=== PATIENT | female | born 1975 | race Caucasian/White ===

== ENCOUNTER 2020-12-13 14:23 | Outpatient (CLI) | payer OTHER, SELFPAY ==
--- NOTE | ~2020-12-13 | MM_ITS ---
EXAMINATION: MM screening [facility] BI w sly HISTORY: Screening TECHNIQUE: Craniocaudal and mediolateral oblique 3-D tomosynthesis images were obtained and synthetic 2-D images were generated. CAD analysis was submitted and interpreted. COMPARISON: Comparison to multiple prior studies sequentially, with oldest reviewed study dated 01/21. BREAST PARENCHYMAL COMPOSITION: There are scattered areas of fibroglandular density. FINDINGS: There is no evidence of suspicious mass, calcification, or architectural distortion to sugg est malignancy in either breast. There has been no suspicious interval change. IMPRESSION: 1. No mammographic evidence of malignancy. 2. Recommend routine screening mammography in one year. BI-RADS Category 1: Negative Reviewed, dictated and finalized at location A.
== END 2020-12-13 14:24 | disposition home or self-care (01) ==
LOC: ANHIMG 14:30
PROVIDERS: Visit Provider Obstetrics & Gynecology
DX: Z12.31 Encounter for screening mammogram for malignant neoplasm of breast (principal)
CPT/HCPCS: 77063; 77067

== ENCOUNTER → 2021-02-08 00:25 | Outpatient (CLI) | payer OTHER, SELFPAY ==
[2021-02-08 19:36] LABS: SARS-CoV-2 RNA PCR Negative
== END ==
PROVIDERS: Visit Provider Internal Medicine Gastroenterology
DX: Z01.812 Encounter for preprocedural laboratory examination (principal); Z20.822 Contact with and (suspected) exposure to COVID-19
CPT/HCPCS: C9803; U0003; U0005

== ENCOUNTER 2021-02-11 02:09 | Day surgery (SDC) | payer OTHER, SELFPAY ==
[2021-01-31 10:00] VITALS: BMI 29.1
[2021-02-11 08:15] VITALS: BP 115/76; PULSE 71; RESP 15; TEMP 36.6; O2SAT 100; BMI 29.1
[2021-02-11] MEDS: LACTATED RINGERS 1,000 ML 150 ML IV CONT (08:18)
--- NOTE | 2021-02-11 08:41 | WPDANESEPPF ---
Anes - Initial Pre Proc Eval Procedure: Operation Date: 02/11/21 09:15 Proposed Procedures p Colonoscopy - Jarrod Estrada MD Date/Time: 02/11/21 08:41 Surgeon: Jarrod Estrada MD Pre Op Diagnosis: diarrhea, rectal bleeding Patient Data Age: 45 Gender: F Height: 5 ft 4 in Weight: 77.1 kg Last Vital Signs Temp 97.8 F 02/11/21 08:15 Pulse 71 02/11/21 08:15 Resp 15 02/11/21 08:15 BP 115/76 02/11/21 08:15 Pulse Ox 100 02/11/21 08:15 Allergies Allergy/AdvReac Type Severity Reaction Status Date / Time Penicillins Allergy Unknown Other Verified 02/11/21 08:14 Home Medications Medication Instructions Recorded Confirmed Type No Home Medications 01/31/21 02/11/21 History Patient hx anesthesia problems: none Family hx anesthesia problems: none PMFSH Past Medical History Medical History (Updated 02/11/21 @ 08:33 by Jere Burt MD) Bronchitis Family History Family History (Updated 02/18/18 @ 08:35 by DOCTOR UNKNOWN) Father Diabetes mellitus Family history of cardiovascular disease Mother Family history of malignant neoplasm of uterus Family history of malignant neoplasm of breast in first degree relative Social History Social History Smoking status: Never smoker Alcohol intake: current Drinks per week: 1 Living arrangements: with family Spiritual care concerns: No Anes - Eval Final PreProcedure Day of Procedure 02/11/21 08:41 Patient weight: normal Heart: regular rate and rhythm Lungs: clear to auscultation Airway: Mallampati scale class II Neurological: alert and oriented Last oral intake: >/= 8 hours ASA classification: II Emergent: no Anesthetic plan: proceed Anesthesia type and monitoring: general GIVS and standard monitoring Informed Consent: The patient's anesthetic plan and its attendant risks and benefits were discussed with the patient/family/POA. Questions were solicited and answers provided to the satisfaction of the patient/family/POA.
--- NOTE | 2021-02-11 09:00 | P.HP_ITS ---
History of Present Illness History of Present Illness Consent: Risks, benefits, and alternatives have been discussed and questions answered. Patient agrees to proceed with procedure. Chief complaint: diarrhea, rectal bleeding Narrative: Maryan Kirkpatrick is a 45 year old female with intermittent bloating and hemorrhoids/blood in stool, normally once a month. 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 Last colonoscopy 5-6 years ago. Review of Systems Constitutional: Constitutional: Denies headache(s) and Denies weakness Eyes: Eyes: Denies blurry vision ENT: Reports Normal hearing present, Denies headache(s) and Denies neck pain Cardiovascular: Cardiovascular: Denies chest pain and Denies dyspnea Respiratory: Respiratory: Denies dyspnea Gastrointestinal: Gastrointestinal: Reports no additional gastrointestinal complaints Genitourinary: Genitourinary: Denies dysuria Musculoskeletal: Musculoskeletal: Denies neck pain Integumentary/Breasts: Skin/Breast: Denies dry skin Neurologic: Reports Normal hearing present, Denies headache(s) and Denies weakness Psychiatric: Psychiatric: Denies anxiety Endocrine: Endocrine: Denies change in body appearance Hematologic/Lymphatic: Hematologic/Lymphatic: Denies easy bleeding Allergic/Immunologic: Allergic/Immunologic: Denies urticaria PMFSH Past Medical History Medical History (Updated 02/11/21 @ 09:01 by Jarrod Estrada MD) Blood in stool Bronchitis Family History Family History (Updated 02/18/18 @ 08:35 by DOCTOR UNKNOWN) Father Diabetes mellitus Family history of cardiovascular disease Mother Family history of malignant neoplasm of uterus Family history of malignant neoplasm of breast in first degree relative Social History Social History Smoking status: Never smoker Alcohol intake: current Drinks per week: 1 Living arrangements: with family Spiritual care concerns: No Meds Home Medications and Allergies Home Medications Medication Instructions Recorded Confirmed Type No Home Medications 01/31/21 02/11/21 History Allergies Allergy/AdvReac Type Severity Reaction Status Date / Time Penicillins Allergy Unknown Other Verified 02/11/21 08:14 Vital Signs Vital Signs - 24 hr 02/11/21 08:15 Temperature 97.8 F Pulse Rate 71 Respiratory Rate 15 Blood Pressure 115/76 Pulse Oximetry 100 Exam Const: General: comfortable and no acute distress HENMT: General nose exam: Normal nares present Eyes: General: appearance normal, both eyes and all related structures Neck: Neck: no JVD Resp: Auscultation: clear to auscultation bilaterally Cardio: Rate: regular rate Rhythm: regular rhythm GI: Inspection: non-distended GI Palp: Yes Soft to palpation Skin: General skin exam: normal color Neuro: General: gait normal Speech: normal speech Extrem: General: normal to inspection Psych: Mental Status: mental status grossly normal Assessment and Plan Assessment and plan (1) Blood in stool: Code(s): K92.1 - Melena Status: Acute Assessment and Plan: colonos
[2021-02-11 09:17] VITALS: BP 101/63; PULSE 62; RESP 15; O2SAT 99
[2021-02-11 09:27] VITALS: BP 123/69; PULSE 67; RESP 16; O2SAT 99
[2021-02-11 09:37] VITALS: BP 126/87; PULSE 70; RESP 16; O2SAT 99
== END 2021-02-11 09:45 | disposition home or self-care (01) ==
PROVIDERS: PCP Obstetrics & Gynecology; Visit Provider Internal Medicine Gastroenterology
PROC: 0DJD8ZZ Inspection of Lower Intestinal Tract, Via Natural or Artificial Opening Endoscopic (ICD-10-PCS; CPT 45378; principal; 2021-02-11 09:15)
DX: K92.1 Melena (principal); R19.7 Diarrhea, unspecified; K57.30 Diverticulosis of large intestine without perforation or abscess without bleeding; K64.8 Other hemorrhoids
CPT/HCPCS: 45378; C9803; J2704; J7120; U0003; U0005

== ENCOUNTER → 2021-03-26 01:19 | Outpatient (CLI) | payer OTHER, SELFPAY ==
[2021-03-26 17:12] LABS: SARS-CoV-2 RNA PCR Negative
== END ==
PROVIDERS: PCP Obstetrics & Gynecology; Visit Provider Obstetrics & Gynecology
DX: Z01.812 Encounter for preprocedural laboratory examination (principal); Z20.822 Contact with and (suspected) exposure to COVID-19
CPT/HCPCS: C9803; U0003; U0005

== ENCOUNTER 2021-03-26 09:14 | Outpatient (CLI) | payer OTHER, SELFPAY ==
[2021-03-26 10:27] LABS: Basophils Percent Auto 0.7 % (0.2-1.2); Eosinophils Absolute Auto 0.2 K/mm3 (0-0.3); Eosinophils Percent Auto 2.8 % (0-4.4); Hematocrit 38.9 % (37.0-47.0); Hemoglobin 12.9 g/dL (12.0-15.0); Immature Granulocyte Absolute 0.01 K/mm3 (0.00-0.031); Immature Granulocyte Percent A 0.2 % (0-0.5); Lymphocytes Absolute Auto 1.82 K/mm3 (0.9-3.2); Mean Corpuscular HGB Conc 33.2 g/dl (32-36); Mean Corpuscular Hemoglobin 31.8 pg (26-34); Mean Corpuscular Volume 95.8 fl (80-100); Monocytes Absolute Auto 0.8 K/mm3 (0.1-0.6); Monocytes Percent Auto 12.5 % (2.6-8.5); Neutrophils Absolute Auto 3.3 K/mm3 (1.3-6.7); Neutrophils Percent Auto 53.8 % (45.5-73.1); Platelet Count Result 231 k/mm3 (150-375); Red Blood Count 4.06 M/mm3 (4.2-5.4); Red Cell Distribution Width 12.3 % (11.5-14.5); White Blood Count 6.1 K/mm3 (4.5-10.0)
== END 2021-03-26 09:15 | disposition home or self-care (01) ==
LOC: ANHSURGERY 09:17
PROVIDERS: Visit Provider Obstetrics & Gynecology
DX: N85.2 Hypertrophy of uterus (principal); Z01.818 Encounter for other preprocedural examination
CPT/HCPCS: 36415; 85025; 86850; 86900; 86901

== ENCOUNTER 2021-03-29 00:19 | Day surgery (SDC) | payer OTHER, SELFPAY ==
[2021-03-18 16:21] VITALS: BMI 28.3
--- NOTE | 2021-03-26 12:27 | PM.IMHP ---
H&P: HPI History of Present Illness Date/Time: 03/26/21 12:27 45-year-old 2 para 2 admitted for robotic total vaginal hysterectomy and bilateral salpingectomies she has a known enlarged fibroid uterus and has had pelvic pain and dyspareunia. She had a negative GI workup and just feels chronic fullness and discomfort. Risks and benefits were reviewed including but not exclusive of , aspiration pneumonia, bleeding, transfusion, perforation injury to bowel, bladder, ureter, or other internal organs with need for open laparotomy. She received the [employer] handout entitled hysterectomy as well as the de [employer] handout. She had all questions answered and asked to proceed Chief Complaint: enlarged uterus and pelvic pain Review of Systems Review of Systems: All systems reviewed & are unremarkable except as noted in HPI and below PMFSH Past Medical History Medical History Blood in stool Bronchitis Family History Family History Father Diabetes mellitus Family history of cardiovascular disease Mother Family history of malignant neoplasm of uterus Family history of malignant neoplasm of breast in first degree relative Social History Social History Smoking status: Never smoker Alcohol intake: current Drinks per week: 2 Spiritual care concerns: No Meds Home Medications and Allergies Home Medications Medication Instructions Recorded Confirmed Type No Home Medications 01/31/21 03/18/21 History Allergies Allergy/AdvReac Type Severity Reaction Status Date / Time Penicillins Allergy Unknown Other Verified 03/18/21 16:20 Exam Const: General: no acute distress Eyes: General: appearance normal, both eyes and all related structures Neck: Neck: supple and no JVD Thyroid: thyroid normal Resp: Effort & Inspection: normal respiratory effort Auscultation: clear to auscultation bilaterally Cardio: Rate: regular rate Rhythm: regular rhythm GI: Inspection: non-distended GI Palp: Yes Soft to palpation, No Tenderness to palpation present (GI) and No Guarding due to palpation present (GI) Auscultation: normal bowel sounds : External Female Exam: normal external appearance Speculum Exam - Vagina: normal appearance of the vagina Speculum Exam - Cervix: normal appearance of the cervix Bimanual exam- vagina & uterus: Cervical tenderness present, enlarged and fixed Bimanual Exam- Adnexa, other: normal adnexae Skin: General skin exam: no rashes or lesions noted Extrem: General: normal to inspection and no edema Psych: Mental Status: mental status grossly normal Affect: normal affect Assessment and Plan Additional Plan impression: Pelvic pain with an enlarged fibroid uterus Plan: Robotic total vaginal hysterectomy and bilateral salpingectomies
[2021-03-29] VITALS (12 sets, daily range): BP systolic 105–125; BP diastolic 62–79; PULSE 47–81; RESP 9–16; TEMP 36.1–36.8; O2SAT 100; BMI 29.1
--- NOTE | 2021-03-29 05:47 | WPDHPUPDATE1 ---
History and Physical Update Update Date/Time: 03/29/21 05:47 History and Physical has been reviewed, including an updated exam of the patient. There are NO changes in the patient's condition. Risks, benefits, and alternatives have been discussed and questions answered. Patient agrees to proceed with procedure.
--- NOTE | 2021-03-29 06:54 | WPDANESEPPF ---
Anes - Initial Pre Proc Eval Procedure: Operation Date: 03/29/21 08:30 Proposed Procedures p Robotic Assisted Total Vaginal Hysterectomy, Bilateral Salpingectomy - Vernon Dennison MD Date/Time: 03/29/21 06:54 Surgeon: Vernon Dennison MD Pre Op Diagnosis: enlarge uterus, pelvic pain, menorrohaghia Patient Data Age: 45 Gender: F Height: 1.65 m Weight: 77.3 kg Allergies Allergy/AdvReac Type Severity Reaction Status Date / Time Penicillins Allergy Unknown Other Verified 03/18/21 16:20 Home Medications Medication Instructions Recorded Confirmed Type hydrocodone-acetaminophen 1 tablet PO Q4H PRN #30 tablet 03/29/21 Rx Patient hx anesthesia problems: none Family hx anesthesia problems: none PMFSH Past Medical History Medical History Blood in stool Bronchitis Surgical History Surgical History (Updated 03/29/21 @ 06:55 by Vernon Ibanez MD) H/O colonoscopy Family History Family History Father Diabetes mellitus Family history of cardiovascular disease Mother Family history of malignant neoplasm of uterus Family history of malignant neoplasm of breast in first degree relative Social History Social History Smoking status: Never smoker Alcohol intake: current Drinks per week: 2 Living arrangements: with family Spiritual care concerns: No Anes - Eval Final PreProcedure Day of Procedure 03/29/21 06:54 Patient weight: overweight Heart: regular rate and rhythm Lungs: clear to auscultation Airway: Mallampati scale class 1 Neurological: alert and oriented Last oral intake: >/= 8 hours ASA classification: II Emergent: no Anesthetic plan: proceed Anesthesia type and monitoring: general ETT and standard monitoring Informed Consent: The patient's anesthetic plan and its attendant risks and benefits were discussed with the patient/family/POA. Questions were solicited and answers provided to the satisfaction of the patient/family/POA.
[2021-03-29] MEDS: LACTATED RINGERS 1,000 ML 30 ML IV CONT ×2 (07:28→09:27)
[2021-03-29] MEDS: ACETAMINOPHEN 500 MG TABLET 1000 MG PO (07:37)
[2021-03-29] MEDS: KETOROLAC 15 MG/ML VIAL (*BKC) IV PUSH (07:38)
[2021-03-29] MEDS: ceFAZolin 2 GM/D5W 50 ML 2 GM/50 ML BAG IVPB (08:00)
--- NOTE | 2021-03-29 09:13 | W.PM.PROC2 ---
Procedure Note - Detailed Date of Procedure 03/29/21 Pre-op Diagnosis enlarge uterus, pelvic pain, menorrohaghia Post-op Diagnosis same Procedure Performed Robotic total vaginal hysterectomy and bilateral salpingectomies Surgeon Vernon Dennison MD Anesthesia general Indications this patient was admitted for hysterectomy secondary to pelvic pain bleeding and dyspareunia Findings enlarged fibroid appearing uterus. Normal-appearing ovaries and tubes bilaterally Description of Procedure the patient was prepped draped in the normal sterile fashion placed in the dorsal lithotomy position. Under excellent general endotracheal anesthesia weighted speculum placed in posterior fornix vagina. Anterior lip of the cervix grasped with a single-tooth tenaculum. Uterus sounded 9cm. Serial dilatation with fragmented dilators performed followed by passage of the 8. ANGELICA and the 3. 0.5 cold cup. Next the 16 Sinhala catheter was placed. Clear fluid was drained from the urine. The weighted speculum was removed and the gloves were changed. A supraumbilical incision was made the Veress needle passed in the abdomen. The abdomen filled with CO2 gas [id number]. The 8mm trocar advanced in the abdomen. The downside visualized and no injury seen. The patient placed in Trendelenburg and right left lateral quadrant incisions were made. 8mm trocars were advanced under direct visualization assuring no injury. A right upper quadrant incision made in the 10mm trocar advanced under direct visualization assuring no injury. The robot was docked. Attention was turned to the console. The left round ligament was grasped, burned, cut. Anteriorly a bladder flap was formed by sharply dissecting the peritoneum and reflecting the bladder caudally away from the cervix and uterus to the opposite round ligament which was clamped, burned, cut. Next the left fallopian tube was sharply dissected using monopolar cautery and left attached to its origin at the uterus. This was repeated in like fashion on contralateral side. The left utero-ovarian ligament was skeletonized to conserve the left ovary. This was clamped, burned, cut. This was brought to the level of previously cut round ligament. In like fashion conserving the right ovary the utero-ovarian ligament was clamped, burned, cut and brought to the level of previously cut round ligament. The left cardinal broad ligaments were then serially skeletonized down the lateral edge of the uterus clamping burning and cutting until the uterine vessels could be seen left. These were large and tortuous and individually clamped, burned, cut. In like fashion the opposite cardinal and broad ligament were skeletonized. These were clamped, burned, cut and brought down the lateral edge of the uterus until the right uterine vessels could be visualized. These also were large and tortuous and individually clamped, burned, cut. Blanching of the uterus was noted. A colpotomy incision was made in the cervix uterus and tubes removed through the vagina. Blood loss estimated at25cc. Vagina was then closed with continuous running 0V lock from lateral edge to lateral edge back to the midline. Irrigation undertaken to clear and hemostasis assured. [place] term was placed over the vaginal cuff where raw areas were seen. The pedicles appeared dry and the robot was undocked. The gas removed from the abdomen. The incisions closed with 4 Monocryl and glue after removal of the trocars. The patient was awakened and went to recovery in satisfactory condition. All sponge, needle, instrument counts were correct. There were no immediate complications noted Estimated Blood Loss 25 Drains No Packing No Pathology yes Complications No immediate complications Condition stable Disposition floor
[2021-03-29] MEDS: fentaNYL CITRATE INJ (*CRX) 100 MCG/2 ML VIAL 25 MCG IV PUSH ×5 (09:40→10:50)
[2021-03-29] MEDS: ONDANSETRON INJ 4 MG/2 ML VIAL IV PUSH (10:50)
[2021-03-29] MEDS: DEXTROSE 5%/LACTATED RINGERS 1,000 ML 125 ML IV CONT (11:30)
--- NOTE | 2021-03-29 11:41 | ADMGEN ---
1111-This patient, Maryan Kirkpatrick, was admitted to OB 2nd Floor Room 279-00. Patient/family oriented to hospital policies and general routines including ID bracelet, bed and alarms, visiting hours, pain management, procedures, bathroom and other care routines, personal items, smoking policy, room service/diet, and visiting hours. Information on how to activate the Rapid Response Team has been discussed. Patient/Family are encouraged to report perceived risks to care and to ask questions if they do not understand what they are told or what they should do.
[2021-03-29] MEDS: KETOROLAC 30 MG/ML VIAL (*BKC) IV PUSH (14:13)
[2021-03-30 05:00] VITALS: BP 121/76; PULSE 62; RESP 16; TEMP 36.7
[2021-03-30 05:24] LABS: Basophils Percent Auto 0.1 % (0.2-1.2); Eosinophils Percent Auto 0.1 % (0-4.4); Hematocrit 33.5 % (37.0-47.0); Hemoglobin 11.1 g/dL (12.0-15.0); Immature Granulocyte Absolute 0.08 K/mm3 (0.00-0.031); Immature Granulocyte Percent A 0.6 % (0-0.5); Lymphocytes Absolute Auto 1.39 K/mm3 (0.9-3.2); Lymphocytes Percent Auto 9.9 % (18.3-44.2); Mean Corpuscular HGB Conc 33.1 g/dl (32-36); Mean Corpuscular Hemoglobin 31.8 pg (26-34); Mean Platelet Volume 11.6 fl (7.4-10.4); Monocytes Absolute Auto 1.2 K/mm3 (0.1-0.6); Monocytes Percent Auto 8.7 % (2.6-8.5); Neutrophils Absolute Auto 11.4 K/mm3 (1.3-6.7); Neutrophils Percent Auto 80.6 % (45.5-73.1); Platelet Count Result 194 k/mm3 (150-375); Red Blood Count 3.49 M/mm3 (4.2-5.4); White Blood Count 14.1 K/mm3 (4.5-10.0)
--- NOTE | 2021-03-30 07:00 | PM.OBPNVD ---
OB - PN: Subj Subjective Date/time seen: 03/30/21 07:00 Patient comments: no complaints and pain well controlled OB - PN: Obj Data Labs CBC & Chem 7: 03/30/21 05:19 Labs: Laboratory Results - last 24 hr 03/30/21 05:19 WBC 14.1 H RBC 3.49 L Hgb 11.1 L Hct 33.5 L MCV 96.0 MCH 31.8 MCHC 33.1 RDW 12.0 Plt Count 194 MPV 11.6 H Immature Gran % (Auto) 0.6 H Neut % (Auto) 80.6 H Lymph % (Auto) 9.9 L [place] % (Auto) 8.7 H Eos % (Auto) 0.1 Baso % (Auto) 0.1 L Lymph # (Auto) 1.39 [place] # (Auto) 1.2 H Eos # (Auto) 0.0 Baso # (Auto) 0.0 Abs Immat Gran (auto) 0.08 H Absolute Neuts (auto) 11.4 H Absolute Nucleated RBC 0.0 Nucleated RBC % 0.0 OB - PN A/P Plan day: 1 Plan: follow up 6 weeks (2 weeks) Time Spent With Patient Time: Total time spent is greater than 50% in coordination of care (as documented) at patient's floor/unit and/or counseling patient: Time with patient: less than 15 minutes Review of Systems Review of Systems: All systems reviewed & are unremarkable except as noted in HPI and below Exam Const: General: no acute distress Eyes: General: appearance normal, both eyes and all related structures Neck: Neck: supple and no JVD Thyroid: thyroid normal Resp: Effort & Inspection: normal respiratory effort Auscultation: clear to auscultation bilaterally Cardio: Rate: regular rate Rhythm: regular rhythm GI: Inspection: non-distended GI Palp: Yes Soft to palpation, No Tenderness to palpation present (GI) and No Guarding due to palpation present (GI) Auscultation: normal bowel sounds : General: Yes bladder normal to palpation External Female Exam: normal external appearance Speculum Exam - Vagina: normal vaginal discharge and No vaginal bleeding Speculum Exam - Cervix: nontender Bimanual exam- vagina & uterus: bladder normal to palpation and No Cervical tenderness present OB/external & speculum: No vaginal bleeding Skin: General skin exam: no rashes or lesions noted Extrem: General: normal to inspection and no edema Psych: Mental Status: mental status grossly normal Affect: normal affect
--- NOTE | 2021-03-30 07:02 | P.DS_ITS ---
DS: Admitting Diagnosis Admitting Diagnosis Admitting Diagnosis: pain /enlarged uterus DS: Summary Hospital Course Hospital Course: The patient was admitted for robotic total vaginal hysterectomy and bilateral salpingectomy. The procedure was unremarkable. Her postop course was unremarkable. She remained afebrile, she was up, voiding without difficulty, ambulating, voiding without difficulty and general without complaints Time Spent with Patient Time attestation: Total time spent providing and/or coordinating discharge services: Exam Const: General: no acute distress Eyes: General: appearance normal, both eyes and all related structures Neck: Neck: supple and no JVD Thyroid: thyroid normal Resp: Effort & Inspection: normal respiratory effort Auscultation: clear to auscultation bilaterally Cardio: Rate: regular rate Rhythm: regular rhythm GI: Inspection: non-distended GI Palp: Yes Soft to palpation, No Tenderness to palpation present (GI) and No Guarding due to palpation present (GI) Auscultation: normal bowel sounds : General: Yes bladder normal to palpation External Female Exam: normal external appearance Speculum Exam - Vagina: normal vaginal discharge and No vaginal bleeding Speculum Exam - Cervix: nontender Bimanual exam- vagina & uterus: bladder normal to palpation and No Cervical tenderness present OB/external & speculum: No vaginal bleeding Skin: General skin exam: no rashes or lesions noted Extrem: General: normal to inspection and no edema Psych: Mental Status: mental status grossly normal Affect: normal affect DS: Data Data Completed and Pending Pending studies at discharge: Pending at discharge 03/29/21 08:53 Surgical [PTH] Routine Labs on day of discharge: Labs from last 24 hours 03/30/21 05:19 WBC 14.1 H RBC 3.49 L Hgb 11.1 L Hct 33.5 L MCV 96.0 MCH 31.8 MCHC 33.1 RDW 12.0 Plt Count 194 MPV 11.6 H Immature Gran % (Auto) 0.6 H Neut % (Auto) 80.6 H Lymph % (Auto) 9.9 L [place] % (Auto) 8.7 H Eos % (Auto) 0.1 Baso % (Auto) 0.1 L Lymph # (Auto) 1.39 [place] # (Auto) 1.2 H Eos # (Auto) 0.0 Baso # (Auto) 0.0 Abs Immat Gran (auto) 0.08 H Absolute Neuts (auto) 11.4 H Absolute Nucleated RBC 0.0 Nucleated RBC % 0.0 Discharge Plan Discharge Patient Disposition: Home, Self-Care Stand Alone Forms: General Discharge Instructions Follow-up/Referrals: Vernon Dennison MD [Primary Care Provider] - Discharge Medications: New hydrocodone-acetaminophen 5-325 mg tablet 1 tablet PO Q4H PRN (Reason: pain) Qty: 30 RF: 0
[2021-03-30 07:09] VITALS: BP 108/72; PULSE 63; RESP 16; TEMP 37.2; O2SAT 100
--- NOTE | 2021-03-30 08:12 | WPDANESPN ---
Anes - Prog Note Post-Op Date/Time: 03/30/21 08:12 Cardiovascular status: normal Respiratory status: normal Airway patency: baseline Mental status: baseline Post-Op hydration status: normal Vital Signs: Last Vital Signs Temp 37.2 C 03/30/21 07:09 Pulse 63 03/30/21 07:09 Resp 16 03/30/21 07:09 BP 108/72 03/30/21 07:09 Pulse Ox 100 03/30/21 07:09 Pain Score (VAS): 0/10. Patient up at bedside ambulating during assessment, appears comfortable. I/O: Intake & Output 03/29/21 03/30/21 03/30/21 23:59 07:59 15:59 Intake Total 1842 Output Total 1800 Balance 42 Laboratory Tests 03/30/21 05:19 03/30/21 05:19 WBC 14.1 H RBC 3.49 L Hgb 11.1 L Hct 33.5 L MCV 96.0 MCH 31.8 MCHC 33.1 RDW 12.0 Plt Count 194 MPV 11.6 H Immature Gran % (Auto) 0.6 H Neut % (Auto) 80.6 H Lymph % (Auto) 9.9 L [place] % (Auto) 8.7 H Eos % (Auto) 0.1 Baso % (Auto) 0.1 L Lymph # (Auto) 1.39 [place] # (Auto) 1.2 H Eos # (Auto) 0.0 Baso # (Auto) 0.0 Abs Immat Gran (auto) 0.08 H Absolute Neuts (auto) 11.4 H Absolute Nucleated RBC 0.0 Nucleated RBC % 0.0 Post-procedural complaints: none Patient Feedback: Patient satisfied with anesthetic care.
[2021-03-30] MEDS: ENOXAPARIN 40 MG/0.4 ML SYRINGE SUB-Q (09:16)
== END 2021-03-30 09:32 | disposition home or self-care (01) ==
LOC: ANHSURGERY 06:36 → ANHOB2 11:08
PROVIDERS: PCP Obstetrics & Gynecology; Visit Provider Obstetrics & Gynecology
PROC: (CPT 58552; principal; 2021-03-29 08:30)
DX: R10.2 Pelvic and perineal pain (principal); N80.0 Endometriosis of uterus; N94.10 Unspecified dyspareunia; N92.0 Excessive and frequent menstruation with regular cycle
CPT/HCPCS: 58552; S2900; 36415; 85025; 86850; 86900; 86901; 88307; 99199; A9270; C9803; J0690; J1100; J1170; J1650; J1885; J2250; J2405; J2704; J3010; J7030; J7120; J7121; U0003; U0005

== ENCOUNTER 2022-07-17 12:39 | Observation (INO) | payer OTHER, SELFPAY ==
[2022-07-17] VITALS (11 sets, daily range): BP systolic 110–171; BP diastolic 60–104; PULSE 58–80; RESP 14–20; TEMP 36.3–36.5; O2SAT 97–100; BMI 28.8
--- NOTE | ~2022-07-17 | CT_ITS ---
EXAMINATION: CTA brain carotid DATE: 07/17/2022 14:06 INDICATION: Right-sided numbness. TECHNIQUE: Computed tomographic angiography (CTA) of the head was performed without and with 100 mL O mnipaque-350 intravenous contrast. CTA of the neck was performed with intravenous contrast. Automated exposure control and iterative reconstruction technique were employed. The dose-length product was 1 612.43 mGy-cm. Maximum intensity projection and volume rendered 3D-reconstructions were created by hyacinth natarajan technologist on a separate workstation. COMPARISON: None. FINDINGS: HEAD CTA: There is no intracranial hemorrhage, acute infarction, or abnormal intracranial mass lesion . The ventricles are normal in size. The orbits are normal. There is mild mucosal thickening in the p aranasal sinuses. There is a trace left mastoid effusion. There is a calcified mass in right parietal scalp, likely a chronic hematoma. Left vertebral artery is dominant. There is no significant stenosi s of basilar artery or the posterior cerebral arteries. There is no significant stenosis of the intra cranial internal carotid arteries or anterior or middle cerebral arteries. Anterior communicating art tien is normal. The posterior communicating arteries are normal. There is no aneurysm. NECK CTA: There are no pathologically enlarged lymph nodes. There is no significant stenosis of the v ertebral arteries. There is no visible plaque in the proximal internal carotids. There is 0% stenosis of the proximal right internal carotid artery relative to normal distal artery lumen diameter (NASCE T criteria). There is 0% stenosis of the proximal left internal carotid artery relative to normal dis gerson artery lumen diameter. There is mild cervical spondylosis. IMPRESSION: 1. Normal brain. No aneurysm or significant intracranial internal stenosis. 2. 0% stenosis of the proximal internal carotid arteries relative to normal distal artery lumen diame ter (NASCET criteria). Reviewed, dictated and finalized at location A. IMPRESSION: 1. Normal brain. No aneurysm or significant intracranial internal stenosis. 2. 0% stenosis of the proximal internal carotid arteries relative to normal dis gerson artery lumen diameter (NASCET criteria).
--- NOTE | ~2022-07-17 | MR_ITS ---
EXAMINATION: MR brain/brain stem wo/w con DATE: 07/18/2022 08:36 INDICATION: Right-sided numbness TECHNIQUE: Magnetic resonance imaging (MRI) of the brain and brainstem was performed without and with 15 mL Multihance intravenous contrast. Sequences included sagittal and axial T1-weighted SE, axial d iffusion-weighted FS SE, axial T2*-weighted GRE, axial 3D SWAN, axial T2-weighted FLAIR, and axial T2 -weighted FSE. Postcontrast axial and coronal T1-weighted SE was obtained. Apparent diffusion coeffic ient (ADC) maps were created. COMPARISON: Head CT and CT angiogram dated 07/17/2022 FINDINGS: There are no areas of restricted diffusion to suggest acute infarction. No intracranial hemorrhage or abnormal intracranial mass lesion. There are no intraparenchymal signal abnormalities seen on the ot her pulse sequences. The ventricles are symmetric and normal in size. There are no abnormal extra-axi al fluid collections. Flow voids are seen in the cerebral arteries on the T2-weighted sequences consi stent with their expected patency. Mild mucoperiosteal thickening throughout the paranasal sinuses. V isualized orbits and soft tissues are unremarkable. There are no areas of abnormal enhancement on the post contrast images. IMPRESSION: 1. Normal brain. Reviewed, dictated and finalized at location A. IMPRESSION: 1. Normal brain.
--- NOTE | ~2022-07-17 | MR_ITS ---
EXAMINATION: MR cervical spine wo/w con DATE: 07/18/2022 08:36 INDICATION: Right arm numbness TECHNIQUE: Magnetic resonance imaging (MRI) of the cervical spine was performed without intravenous c ontrast. Sequences included sagittal T2-weighted FSE, sagittal T2-weighted FS FSE, sagittal T1-weight ed FSE, axial MERGE and axial T2-weighted FSE. COMPARISON: None FINDINGS: Mild upper thoracic levocurvature. Normal alignment of the cervical spine. Vertebral body heights ar e normal. Bone marrow signal intensity is normal. Mild disc desiccation throughout the cervical spin e with normal disc heights. Annular fissure at C6-C7 with small posterior disc extrusion with disc ma terial extending a few millimeter cephalad and caudal to the level of the endplates. Additional annul ar fissure at C4-C5 and C5-C6. Cord signal intensity is normal with no abnormally enhancing lesions i n the cord or in the visualized cerebellum, maris and brainstem. Cervical soft tissues are unremarkabl e. The following disc levels are specifically discussed: C2-C3: The disc does not extend beyond the endplate margin. There is no uncovertebral joint osteoarth ritis. There is mild bilateral facet joint osteoarthritis. There is no neural foraminal stenosis. The re is no central canal stenosis. C3-C4: The disc does not extend beyond the endplate margin. There is no uncovertebral joint osteoarth ritis. There is left and mild to moderate right facet joint osteoarthritis. There is no neural forami nal stenosis. There is no central canal stenosis. C4-C5: Annular fissure and small right paracentral disc protrusion. There is mild bilateral uncoverte bral joint osteoarthritis. There is moderate right and mild to moderate left facet joint osteoarthrit is. There is mild right neural foraminal stenosis. There is negligible central canal stenosis. C5-C6: Annular fissure and minimal disc bulge. There is mild right uncovertebral joint osteoarthritis . There is moderate right and mild left facet joint osteoarthritis. There is no neural foraminal sten osis. There is no central canal stenosis. C6-C7: Annular fissure and small central disc extrusion which flattens the ventral surface of the cor d. There is mild right uncovertebral joint osteoarthritis. There is mild left and mild to moderate ri ght facet joint osteoarthritis. There is no neural foraminal stenosis. There is mild central canal st enosis. C7-T1: The disc does not extend beyond the endplate margin. There is no uncovertebral joint osteoarth ritis. There is mild right and mild to moderate left facet joint osteoarthritis. There is no neural f oraminal stenosis. There is no central canal stenosis. IMPRESSION: 1. Mild cervical spondylosis. No cord lesions identified. Reviewed, dictated and finalized at location A.
--- NOTE | 2022-07-17 12:46 | ECG_ITS ---
Measurements Intervals [place] Rate: 77 P: 44 W[place]: 127 QRS: 45 QRSD: 88 T: 56 QT: 386 QTc: 438 Interpretive Statements SINUS RHYTHM WITH FREQUENT VENTRICULAR PREMATURE COMPLEXES POSSIBLE RIGHT VENTRICULAR CONDUCTION DELAY [RSR (QR) IN V1/V2] NONSPECIFIC ST ABNORMALITY ABNORMAL ECG NO PREVIOUS ECG AVAILABLE FOR COMPARISON Electronically Signed On 07-17-2022 15:01:28 CDT by Ney Cameron M.D.
[2022-07-17 13:19] LABS: Basophils Percent Auto 0.4 % (0.2-1.2); Eosinophils Absolute Auto 0.1 K/mm3 (0-0.3); Eosinophils Percent Auto 1.3 % (0-4.4); Hematocrit 45.3 % (37.0-47.0); Hemoglobin 14.8 g/dL (12.0-15.0); Immature Granulocyte Absolute 0.01 K/mm3 (0.00-0.031); Immature Granulocyte Percent A 0.1 % (0-0.5); Lymphocytes Absolute Auto 1.95 K/mm3 (0.9-3.2); Mean Corpuscular HGB Conc 32.7 g/dl (32-36); Mean Corpuscular Hemoglobin 31.6 pg (26-34); Mean Corpuscular Volume 96.6 fl (80-100); Mean Platelet Volume 12.1 fl (7.4-10.4); Monocytes Percent Auto 15.5 % (2.6-8.5); Neutrophils Absolute Auto 3.6 K/mm3 (1.3-6.7); Neutrophils Percent Auto 53.7 % (45.5-73.1); Platelet Count Result 221 k/mm3 (150-375); Red Blood Count 4.69 M/mm3 (4.2-5.4); Red Cell Distribution Width 12.5 % (11.5-14.5); White Blood Count 6.7 K/mm3 (4.5-10.0)
[2022-07-17 13:33] LABS: Alanine Aminotransferase 27 U/L (6-35); Albumin Level 5.4 g/dL (3.5-5.1); Alkaline Phosphatase 77 U/L (38-126); Anion Gap 13 mmol/L (8-16); Aspartate Amino Transferase 33 U/L (14-36); Bilirubin,Total 0.9 mg/dL (0.2-1.3); Blood Urea Nitrogen 17 mg/dL (7-17); Calcium 9.4 mg/dL (8.4-10.2); Carbon Dioxide 22 mmol/L (22-30); Chloride 101 mmol/L (98-107); Estimated CRCL calculation 68 ml/min; Estimated Glomerular Filt Rate > 60; Glucose 93 mg/dL (65-110); Lipase 95 U/L (23-300); Potassium 3.7 mmol/L (3.4-5.0); Sodium 136 mmol/L (137-145)
[2022-07-17 13:36] LABS: Prothrombin Time 12.8 Seconds (11.1-14.7)
[2022-07-17 13:37] LABS: Partial Thromboplastin Time 26.9 SECONDS (22.3-36.8)
[2022-07-17 13:43] LABS: Troponin I < 0.012 ng/mL (0.000-0.034)
--- NOTE | 2022-07-17 14:45 | ED.EXTPRO ---
HPI - Extremity Problem General Chief complaint: Extremity Problem,Nontraumatic Stated complaint: numbness and tingling R arm Time Seen by Provider: 07/17/22 12:51 History of Present Illness HPI Narrative: Patient is a 47-year-old female who presents ER with right-sided tingling/numbness. Began 30 minutes prior to arrival. It is affecting her right upper extremity and her right lower extremity but not the trunk. No associated physical weakness. No slurred speech or expressive aphasia. She had similar symptoms last week that lasted 5 to 10 minutes. She had a similar episode 1 year ago where her right arm was paralyzed for about 5 minutes. She has no history of CVA. No history of demyelinating disease. She has not been evaluated for this issue. She reports no change in her symptoms since symptom onset. Patient reports no history of headache associated with these symptoms. Related Data Home Medications Medication Instructions Recorded Confirmed No Home Medications 07/17/22 07/17/22 Allergies Allergy/AdvReac Type Severity Reaction Status Date / Time Penicillins Allergy Unknown Other Verified 07/17/22 13:07 Review of Systems Review of Systems: All systems reviewed & are unremarkable except as noted in HPI and below Constitutional: Constitutional: Denies chills, Denies fatigue and Denies fever(s) Eyes: Eyes: Denies change in vision ENT: Denies vertigo, Denies nasal congestion and Denies sore throat Cardiovascular: Cardiovascular: Denies chest pain, Denies rapid heart rate and Denies radiating jaw, neck or arm pain Respiratory: Respiratory: Denies cough and Denies dyspnea Gastrointestinal: Gastrointestinal: Denies abdominal pain, Denies nausea and Denies vomiting Neurologic: Denies confusion, Denies syncope, Denies headache(s), Denies focal weakness and Reports numbness PMFSH Past Medical History Medical History (Updated 07/17/22 @ 22:14 by Julio Tenorio MD) Blood in stool Bronchitis Diverticulosis History of uterine fibroid IBS (irritable bowel syndrome) Strain of muscle, fascia and tendon of long head of biceps, right arm, initial encounter Surgical History Surgical History H/O colonoscopy H/O: hysterectomy Family History Family History Father Diabetes mellitus Family history of cardiovascular disease Mother Family history of malignant neoplasm of uterus Family history of malignant neoplasm of breast in first degree relative Leukemia Social History Social History (Updated 07/17/22 @ 18:09 by Nikki Sandhu NP) Social History: the patient lives with her trip who is her durable power workers compensation attorney for healthcare. They haves 2 children. She works for [employer] . She is a lifelong nonsmoker. She denies any marijuana or illicit drugs. the patient stated that she might have 2 drinks a week. Code status full code Smoking status: Never smoker Second hand tobacco smoke exposure: No Alcohol intake: never Drinks per week: 2 Substance use: never Living arrangements: with family Spiritual care concerns: No Has the Lack of Transportation Kept You From Medical Appointments or From Getting Medications?: No Within the Past 12 Months, Were You Worried Whether Your Food Would Run Out Before You Got Money to Buy More?: Never True What is Your Housing Situation Today?: I Have Housing Are You Worried That in the Next 2 Months, You May Not Have Your Own Housing to Live In?: No Do You Have Trouble Paying Your Heating Or Electricity Bill?: No Do You Have Trouble Paying For Medicines?: No Are You Currently Unemployed and Looking for Work?: No Highest Level of Education Completed: Bachelor's Degree Do You Have Trouble With Childcare or the Care of a Family Member?: No Exam Narrative: GENERAL: Well-appearing, well-nourished, and in no acute distr
[2022-07-17 16:02] LABS: Troponin I < 0.012 ng/mL (0.000-0.034)
--- NOTE | 2022-07-17 16:19 | PM.IMHP ---
H&P: HPI History of Present Illness Date/Time: 07/17/22 16:19 Chief Complaint: Numbness and tingling to right arm Narrative: this is a 47-year-old female patient who was brought to the emergency room today with right-sided numbness and tingling. The patient stated that it started in her right arm then she felt that and right lower extremity it started about 30 minutes prior to arrival. The patient stated that she has had 2 prior experiences leg this in the past. She has never had a workup for it. She has had no prior history of having a CVA. She stated when she had these symptoms in the past daily lasted 5-10 minutes. Her last episode was about a year ago when she was washing dishes and this happened for about 5 minutes. She has no headache associated with the symptoms. She had no chest pain. No fever chills. No nausea vomiting or diarrhea. Her sodium level was slightly low at 136. Head and neck CT were read as normal brain. No aneurysm or significant intracranial internal stenosis. 0% stenosis of the proximal internal carotid arteries relative to normal distal artery lumen diameter. The patient stated she had no slurred speech or focal weakness chest numbness and tingling to her right arm and leg. No recent injury. The patient is being admitted to observation status on the date of service of 07/17/2022. Review of Systems Review of Systems: See HPI All systems reviewed & are unremarkable except as noted in HPI and below Constitutional: Constitutional: Reports as per HPI and Reports no additional constitutional complaints Eyes: Eyes: Reports as per HPI and Reports no additional eye complaints ENT: Reports system reviewed and no additional complaints, except as documented and Reports Normal hearing present Cardiovascular: Cardiovascular: Reports no additional cardiovascular complaints Respiratory: Respiratory: Reports no additional respiratory complaints and Reports no additional respiratory complaints Gastrointestinal: Gastrointestinal: Reports as per HPI and Reports no additional gastrointestinal complaints Musculoskeletal: Musculoskeletal: Reports no additional musculoskeletal complaints Integumentary/Breasts: Skin/Breast: Reports system reviewed and no additional complaints, except as docu and Reports as per HPI Neurologic: Reports system reviewed and no additional complaints, except as documented, Reports as per HPI and Reports Normal hearing present Psychiatric: Psychiatric: Reports no additional psychiatric complaints and Reports as per HPI Endocrine: Endocrine: Reports no additional endocrine complaints Hematologic/Lymphatic: Hematologic/Lymphatic: Reports no additional hematologic/lymphatic complaints Allergic/Immunologic: Allergic/Immunologic: Reports no additional allergic/immunologic complaints FORMERLY [facility], 1928–1983 Past Medical History Medical History (Updated 07/17/22 @ 18:12 by Nikki Sandhu NP) Blood in stool Bronchitis Diverticulosis History of uterine fibroid IBS (irritable bowel syndrome) Strain of muscle, fascia and tendon of long head of biceps, right arm, initial encounter Surgical History Surgical History H/O colonoscopy H/O: hysterectomy Family History Family History Father Diabetes mellitus Family history of cardiovascular disease Mother Family history of malignant neoplasm of uterus Family history of malignant neoplasm of breast in first degree relative Leukemia Social History Social History (Updated 07/17/22 @ 18:09 by Nikki Sandhu NP) Social History: the patient lives with her husand who is her durable power attorney lawyer for healthcare. They haves 2 children. She works for [employer] . She is a lifelong nonsmoker. She denies any marijuana or illicit drugs. the patient stated that she might have 2 drinks a week. Code status full code Smoking status
--- NOTE | 2022-07-17 18:18 | ADMGEN ---
This patient, Maryan Kirkpatrick, was admitted to 2 Medical Room 241-01. Patient/family oriented to hospital policies and general routines including ID bracelet, bed and alarms, visiting hours, pain management, procedures, bathroom and other care routines, personal items, smoking policy, room service/diet, and visiting hours. Information on how to activate the Rapid Response Team has been discussed. Patient/Family are encouraged to report perceived risks to care and to ask questions if they do not understand what they are told or what they should do.
[2022-07-17 19:51] LABS: Troponin I < 0.012 ng/mL (0.000-0.034)
[2022-07-18] VITALS (8 sets, daily range): BP systolic 111–128; BP diastolic 63–87; PULSE 58–81; RESP 14–18; TEMP 36.1–36.5; O2SAT 98–100
--- NOTE | 2022-07-18 | ECHO_ITS ---
Patient Info Name: Maryan Kirkpatrick Age: 47 years : 1975 Gender: Female Ht: 64 in Wt: 163 lbs BSA: 1.85 m2 HR: 68 bpm BP: 178 / 100 mmHg Technical Quality: Good Exam Date: 07/18/2022 9:00 AM Exam Location: [facility] Patient Status: Inpatient Admit Date: 07/17/2022 Staff Ordering Physician: Nikki Sandhu NP Museum Assistant: Yosvany Salvador RDCS, RT Attending Provider: George Avina MD Referring Physician: Phoebe BOND; Exam Type: CA echo dop bubble study w con Study Info Indications R42 - Dizziness and giddiness Complete two-dimensional, color flow and Doppler transthoracic echocardiogram is performed. Strain analysis performed. Complete two-dimensional, color flow and Doppler transthoracic echocardiogram is performed with agitated saline. Summary 1. Complete two-dimensional, color flow and Doppler transthoracic echocardiogram is performed. 2. Left ventricular chamber dimension is normal. 3. Left ventricular systolic function is normal, estimated at 60-65%. 4. The left ventricular diastolic function is normal. 5. E/e' 6 is not elevated. 6. Global longitudinal strain is normal at -17.6%. 7. There is trace tricuspid valve regurgitation. Left Ventricle E/e' 6 is not elevated. Global longitudinal strain is normal at -17.6%. Left ventricular chamber dimension is normal. Left ventricular systolic function is normal, estimated at 60-65%. The left ventricular diastolic function is normal. Right Ventricle Right ventricular systolic function is normal and with normal TAPSE 2.5 cm.. Right ventricular chamber dimension is normal. Left Atria Left atrial chamber dimension is normal. Right Atria Right atrial chamber dimension is normal. Atrial Septum Agitated saline injection with and without valsalva maneuver opacified right side cardiac chambers without shunt to left side cardiac chambers. Intact interatrial septum visualized by 2D and agitated saline imaging. Aortic Valve The aortic valve is trileaflet. There is no aortic valve stenosis. There is no aortic valve regurgitation. Pulmonic Valve There is no pulmonic regurgitation. Mitral Valve There is no mitral valve stenosis. There is no mitral valve regurgitation. Tricuspid Valve There is trace tricuspid valve regurgitation. RVSP is not calculated due to an inadequate TR jet. Pericardium/Pleural There is no pericardial effusion. Inferior Vena Cava Normal inferior vena cava with >50% collapse upon inspiration consistent with normal right atrial pressure, 5 mmHg. Aorta The aortic root size at the sinus of Valsalva is normal. Left Ventricular Outflow Tract Name Value Normal LVOT 2D LVOT Diameter 2.0 cm LVOT Doppler LVOT Peak Gradient 3 mmHg LVOT Mean Gradient 2 mmHg LVOT VTI 18 cm LVOT VTI/AV VTI Ratio 0.7 LVOT Stroke Volume 54 ml LVOT CO 4.1 l/min LVOT CI 2.2 l/min/m2 Leanne
[2022-07-18 05:51] LABS: Basophils Percent Auto 0.6 % (0.2-1.2); Eosinophils Absolute Auto 0.1 K/mm3 (0-0.3); Eosinophils Percent Auto 2.2 % (0-4.4); Hematocrit 39.9 % (37.0-47.0); Hemoglobin 13.2 g/dL (12.0-15.0); Immature Granulocyte Absolute 0.02 K/mm3 (0.00-0.031); Immature Granulocyte Percent A 0.4 % (0-0.5); Lymphocytes Absolute Auto 1.77 K/mm3 (0.9-3.2); Lymphocytes Percent Auto 32.8 % (18.3-44.2); Mean Corpuscular HGB Conc 33.1 g/dl (32-36); Mean Corpuscular Hemoglobin 32.1 pg (26-34); Mean Corpuscular Volume 97.1 fl (80-100); Mean Platelet Volume 12.2 fl (7.4-10.4); Monocytes Absolute Auto 0.9 K/mm3 (0.1-0.6); Monocytes Percent Auto 16.1 % (2.6-8.5); Neutrophils Absolute Auto 2.6 K/mm3 (1.3-6.7); Neutrophils Percent Auto 47.9 % (45.5-73.1); Platelet Count Result 192 k/mm3 (150-375); Red Blood Count 4.11 M/mm3 (4.2-5.4); Red Cell Distribution Width 12.5 % (11.5-14.5); White Blood Count 5.4 K/mm3 (4.5-10.0)
--- NOTE | 2022-07-18 06:42 | PM.IMPN ---
Progress Note: A&P Assessment and Plan (1) Paresthesia: Code(s): R20.2 - Paresthesia of skin Status: Acute Assessment and Plan: Complaints of paresthesia in the right leg and arm Noted multiple episodes Neurology consulted CTA of the head and neck found no abnormality and 0% stenosis of the bilated carotid bulb MRI of the brain and spine ordered Consider nerve conduction test Echo Doppler ordered and pending Time Spent With Patient Time with patient: Greater than 35 minutes Subjective Date/time seen: 07/18/22 06:42 Interval history: 07/18/22 07/17/22? 16:19 ?this is a 47-year-old female patient who was brought to the emergency room today with right-sided numbness and tingling.? The patient stated that it started in her right arm then she felt that and right lower extremity it started about 30 minutes prior to arrival.? The patient stated that she has had 2 prior experiences leg this in the past.? She has never had a workup for it.? She has had no prior history of having a CVA.? She stated when she had these symptoms in the past daily lasted 5-10 minutes.? Her last episode was about a year ago when she was washing dishes and this happened for about 5 minutes.? She has no headache associated with the symptoms.? She had no chest pain.? No fever chills.? No nausea vomiting or diarrhea.? Her sodium level was slightly low at 136.? Head and neck CT were read as normal brain.? No aneurysm or significant intracranial internal stenosis.? 0% stenosis of the proximal internal carotid arteries relative to normal distal artery lumen diameter.? The patient stated she had no slurred speech or focal weakness chest numbness and tingling to her right arm and leg.? No recent injury. ? The patient is being admitted to observation status on the date of service of 07/17/2022. Review of Systems Review of Systems: All systems reviewed & are unremarkable except as noted in HPI and below Exam Const: General: cooperative, healthy appearing, no acute distress, well developed, alert, awake and well nourished Nutritional Appearance: well nourished Orientation/consciousness: patient oriented x3 Limitations: no limitations HENMT: Head: normal to inspection Ears: hearing grossly normal bilaterally Face/Nose/Sinus: Normal external nose present Mouth: Yes Normal oral and palatal mucosa present, Yes lip normal and Yes tongue normal Teeth and gingiva: abnormal tooth and associated gingiva and poor dentition Eyes: General: appearance normal, both eyes and all related structures Neck: Neck: normal visual inspection, full ROM, trachea midline and supple Chest: Chest palpation & inspection: normal inspection of the chest Resp: Effort & Inspection: normal respiratory effort and able to speak in complete sentences Auscultation: clear to auscultation bilaterally Cardio: Jugular venous distension: no JVD Rate: regular rate Rhythm: regular rhythm Heart sounds: S1 normal heart sound present and S2 normal heart sound present Peripheral pulses: Peripheral pulses 2+ throughout GI: Inspection: normal to inspection GI Palp: Yes Soft to palpation and No Tenderness to palpation present (GI) Auscultation: normal bowel sounds Skin: General skin exam: normal color and no rashes or lesions noted Lesions: no lesions Rashes: no rashes Trauma: no lacerations or abrasions Wounds: no wounds Hair: normal Nails: normal Neuro: General: patient oriented x3, moves all extremities and Normal light touch and pain sensation Speech: normal speech Gait exam (Neuro): Normal gait present Extrem: General: normal to inspection Right upper extremity: normal to inspection Left upper extremity: normal to inspection Right lower extremity: normal to inspection Left lower extremity: normal to inspection Psych: Appearance: grossly normal Objective Data Vital Signs Vital Signs: Vital Signs - 24 hr 07/17/22 12:41 07/17/22 13:01 07/17/22 1
[2022-07-18 06:51] LABS: Alanine Aminotransferase 22 U/L (6-35); Albumin Level 4.1 g/dL (3.5-5.1); Alkaline Phosphatase 55 U/L (38-126); Anion Gap 7 mmol/L (8-16); Aspartate Amino Transferase 26 U/L (14-36); Bilirubin,Total 1.4 mg/dL (0.2-1.3); Blood Urea Nitrogen 13 mg/dL (7-17); Calcium 8.7 mg/dL (8.4-10.2); Carbon Dioxide 26 mmol/L (22-30); Chloride 104 mmol/L (98-107); Estimated CRCL calculation 76 ml/min; Estimated Glomerular Filt Rate > 60; Glucose 90 mg/dL (65-110); Potassium 3.7 mmol/L (3.4-5.0); Sodium 137 mmol/L (137-145)
--- NOTE | 2022-07-18 09:30 | PM.DS ---
DS: Admitting Diagnosis Discharge Date 07/18/22929 Admitting Diagnosis Paresthesia DS: Discharge Diagnosis Discharge Diagnosis (1) Paresthesia: Code(s): R20.2 - Paresthesia of skin Status: Acute Assessment and Plan: Complaints of paresthesia in the right leg and arm Noted multiple episodes Neurology consulted CTA of the head and neck found no abnormality and 0% stenosis of the bilated carotid bulb MRI of the brain was normal spine normal Consider nerve conduction test Echo Doppler DS: Summary Hospital Course Hospital Course: Patient is a 47-year-old female with a past medical history of diverticulosis, uterine fibroid, IBS who presented to the ED with complaints of right-sided weakness and numbness and tingling. Patient stated that she has had multiple episodes over the last few months however this episode was different as she started have numbness and tingling in her arm and stated that her arm was fully functional however she started to just feel numb. She also stated that she was having a little bit of tingling on her leg on the skin. She stated the last about 30 minutes which prompted her to come in as his longest ever lasted. Head CT was performed showed no acute abnormalities including 0% carotid bulb stenosis. Brain MRI was also performed and showed normal brain, cervical spine MRI showed normal spine. Patient denies any current chest pain, shortness a breath, nausea, vomiting, diarrhea, constipation, weakness or fatigue. Labs have remained stable throughout the entire visit. Patient stated that symptoms has resolved at this time. Neurology has been consulted. Neurology is recommending a LP, however, patient would like to wait and have a follow up with neurology. Talked with the patient about the risk versus benefit of the procedure vs not having the procedure. Talked about the results of the test. Have given her all options at this time. Updated Dr. Anderson who is ok with patient follow up in 3 months for further discussion. Patient has verbalized that she is not wanting to get the LP at this time. Patient is stable for discharge at this time, and will follow up with Dr. Anderson in 3 months. Status at Discharge Functional status at discharge: independent ambulation Overall status at discharge: patient is progressing back to baseline Time Spent with Patient Time attestation: Total time spent providing and/or coordinating discharge services: 36 minutes Specific discharge activities: Diagnostic testing, chart review, developing a treatment plan, education, care coordination documentation, physical exam, result review Exam Const: General: cooperative, healthy appearing, no acute distress, well developed, alert, awake and well nourished Nutritional Appearance: well nourished Orientation/consciousness: patient oriented x3 Limitations: no limitations HENMT: Head: normal to inspection Ears: hearing grossly normal bilaterally Face/Nose/Sinus: Normal external nose present Mouth: Yes Normal oral and palatal mucosa present, Yes lip normal and Yes tongue normal Teeth and gingiva: abnormal tooth and associated gingiva and poor dentition Eyes: General: appearance normal, both eyes and all related structures Neck: Neck: normal visual inspection, full ROM, trachea midline and supple Chest: Chest palpation & inspection: normal inspection of the chest Resp: Effort & Inspection: normal respiratory effort and able to speak in complete sentences Auscultation: clear to auscultation bilaterally Cardio: Jugular venous distension: no JVD Rate: regular rate Rhythm: regular rhythm Heart sounds: S1 normal heart sound present and S2 normal heart sound present Peripheral pulses: Peripheral pulses 2+ throughout GI: Inspection: normal to inspection Auscultation: normal bowel sounds Skin: General skin exam: normal color and no rashes or lesions noted Lesions: no lesions Rashes: no rashes Trauma:
== END 2022-07-18 17:39 | disposition home or self-care (01) ==
LOC: ANHED 13:12 → ANH2MED 17:49
PROVIDERS: Emergency Medicine; Nurse Practitioner; Admitting Provider Internal Medicine; Emergency Provider Emergency Medicine; Visit Provider Internal Medicine
DX: R20.2 Paresthesia of skin (principal); R20.0 Anesthesia of skin; R53.1 Weakness; K58.9 Irritable bowel syndrome, unspecified; K57.90 Diverticulosis of intestine, part unspecified, without perforation or abscess without bleeding; E87.1 Hypo-osmolality and hyponatremia; M47.812 Spondylosis without myelopathy or radiculopathy, cervical region; F10.90 Alcohol use, unspecified, uncomplicated; R94.31 Abnormal electrocardiogram [ECG] [EKG]; Z82.49 Family history of ischemic heart disease and other diseases of the circulatory system
CPT/HCPCS: 36415; 70496; 70498; 70553; 72156; 80053; 82607; 82746; 83690; 83735; 84443; 84484; 85025; 85610; 85730; 93005; 96375; 99285; A9577; C8929; G0378; Q9967

== ENCOUNTER 2022-10-09 09:39 | Outpatient (CLI) | payer OTHER, SELFPAY ==
--- NOTE | 2022-10-09 11:00 | NEURO_ITS ---
Impression: # Complains of numbness of hands. # No Carpal Tunnel Syndrome. # Right ulnar neuropathy across the elbow. # Normal needle/EMG exam. Motor Nerve Conduction Upper Extremities Median Nerve Conduction Velocity (m/sec) Terminal Latency (msec) Response Voltage(mV) Elbow-Wrist Wrist Elbow Wrist Right 56 3.4 2 4 Left 56 3.9 3 4 Ulnar Nerve Conduction Velocity (m/sec) Terminal Latency (msec) Response Voltage(mV) Above Elbow Below Elbow Wrist Above Elbow Below Elbow Wrist Right 51 56 2.9 7 5 8 Left 57 2.8 6 6 F-Wave Latency Median (ms) Ulnar (ms) Right 28.9 28.6 Left 28.4 28.0 Sensory Nerve Conduction Upper Extremities Median Nerve Stimulation Terminal Latency (msec) Wrist/Digit Response Voltage (uV) Wrist Right 3.3/3.4 71/89 Left 3.8/3.5 84/94 Ulnar Nerve Stimulation Terminal Latency (msec) Wrist/Digit Response Voltage (uV) Wrist Right 2.7 39 Left 2.7 91 Radial Nerve Terminal Latency (msec) Response Voltage(mV) Right 2.7 35 Left 2.3 50 Left Right Muscles Examined Fibrillation Fasciculation Scarcity Voltage Duration Left Right Left Right Left Right Left Right Left Right Deltoid Biceps X X Brachioradialis Triceps X X Pronator Teres X X Ext Indicis X X Ext Digitorum X X Abd Poll Brev X X 1st Dorsal Interosseus Paraspinals MTDD
== END 2022-10-09 09:40 | disposition home or self-care (01) ==
PROVIDERS: PCP Emergency Medicine; Visit Provider Emergency Medicine
DX: R20.0 Anesthesia of skin (principal); G56.21 Lesion of ulnar nerve, right upper limb
CPT/HCPCS: 95886; 95911

== ENCOUNTER 2022-10-10 09:59 | Outpatient (CLI) | payer OTHER, SELFPAY ==
--- NOTE | ~2022-10-10 | MM_ITS ---
EXAMINATION: MM screening lex BI w sly HISTORY: Screening TECHNIQUE: Craniocaudal and mediolateral oblique 3-D tomosynthesis images were obtained and synthetic 2-D images were generated. CAD analysis was submitted and interpreted. COMPARISON: Comparison to multiple prior studies sequentially, with oldest reviewed study dated 12/12. BREAST PARENCHYMAL COMPOSITION: There are scattered areas of fibroglandular density. FINDINGS: Stable bilateral breast asymmetries laterally. There is no evidence of suspicious mass, xiomara cification, or architectural distortion to suggest malignancy in either breast. There has been no nika picious interval change. IMPRESSION: 1. No mammographic evidence of malignancy. 2. Recommend routine screening mammography in one year. BI-RADS Category 2: Benign finding(s). Reviewed, dictated and finalized at location A. [employer]
== END 2022-10-10 10:00 | disposition home or self-care (01) ==
LOC: ANHIMG 10:01
PROVIDERS: PCP Emergency Medicine; Visit Provider Obstetrics & Gynecology
DX: Z12.31 Encounter for screening mammogram for malignant neoplasm of breast (principal)
CPT/HCPCS: 77063; 77067

== ENCOUNTER 2024-04-30 08:07 | Outpatient (CLI) | payer OTHER, SELFPAY ==
[2024-04-30 09:20] LABS: Alanine Aminotransferase 26 U/L (6-35); Albumin Level 4.7 g/dL (3.5-5.1); Alkaline Phosphatase 62 U/L (38-126); Anion Gap 11 mmol/L (4-12); Aspartate Amino Transferase 25 U/L (14-36); Bilirubin,Total 0.7 mg/dL (0.2-1.3); Blood Urea Nitrogen 18 mg/dL (7-17); Calcium 9.2 mg/dL (8.4-10.2); Carbon Dioxide 26 mmol/L (22-30); Chloride 102 mmol/L (98-107); Cholesterol 164 mg/dL (0-200); Estimated Glomerular Filt Rate > 60; Glucose 96 mg/dL (65-110); HDL Direct 59 mg/dL; Potassium 4.3 mmol/L (3.4-5.0); Sodium 139 mmol/L (137-145); Triglycerides 60 mg/dL (<150)
[2024-04-30 09:31] LABS: LDL Cholesterol Direct 84 mg/dL
[2024-04-30 09:32] LABS: LDL Cholesterol Direct 84 mg/dL
[2024-04-30 09:41] LABS: Hemoglobin A1C 5.4 % (<5.7)
[2024-04-30 09:56] LABS: D Dimer 0.44 ug/mL (<0.48)
[2024-05-02 11:48] LABS: Homocysteine 10.6 umol/L (<10.4)
[2024-05-02 15:14] LABS: Lipoprotein A <10 nmol/L
[2024-05-05 03:34] LABS: Anti Cardio Antibody IgM <2.0 MPL-U/mL; Anti Cardiolipin Antibody IgA <2.0 APL-U/mL; Anti Cardiolipin Antibody IgG <2.0 GPL-U/mL
== END 2024-04-30 08:08 | disposition home or self-care (01) ==
PROVIDERS: PCP Emergency Medicine; Visit Provider Student in an Organized Health Care Education/Training Program
DX: R20.0 Anesthesia of skin (principal); R20.2 Paresthesia of skin; Z13.220 Encounter for screening for lipoid disorders
CPT/HCPCS: 36415; 80053; 80061; 83036; 83090; 83695; 83721; 85303; 85306; 85380; 86146; 86147

== ENCOUNTER 2024-09-27 08:05 | Outpatient (CLI) | payer OTHER, SELFPAY ==
--- NOTE | ~2024-09-27 | MM_ITS ---
EXAMINATION: MM screening lex BI w sly HISTORY: Screening mammogram, family history of breast cancer in her mother. TECHNIQUE: Craniocaudal and mediolateral oblique 3-D tomosynthesis images were obtained and synthetic 2-D images were generated. CAD analysis was submitted and interpreted. COMPARISON: 10/10/2022, 12/13/2020 BREAST PARENCHYMAL COMPOSITION:Not Dense. There are scattered areas of fibroglandular density. FINDINGS: No suspicious mass, calcification, or architectural distortion are identified in either amarilis ast to suggest malignancy. There has been no suspicious interval change. IMPRESSION: No mammographic evidence of malignancy. Recommend routine screening mammography in one year. BI-RADS Category 1: Negative Reviewed, dictated and finalized at location . [facility] [employer]
== END 2024-09-27 08:06 | disposition home or self-care (01) ==
PROVIDERS: PCP Emergency Medicine; Visit Provider Emergency Medicine
DX: Z12.31 Encounter for screening mammogram for malignant neoplasm of breast (principal)
CPT/HCPCS: 77063; 77067

== ENCOUNTER 2025-06-15 07:52 | Outpatient (CLI) | payer OTHER, SELFPAY | END 2025-06-15 07:53 | disposition home or self-care (01) | LOC: ANHAUDASC 07:55 | PROVIDERS: PCP Family Medicine; Visit Provider Family Medicine | DX: H91.93 Unspecified hearing loss, bilateral (principal) | CPT/HCPCS: 92557; 92567 ==